=== PATIENT | female | born 1965 | race African-American/Black ===

== ENCOUNTER → 2020-07-05 02:58 | Outpatient (CLI) | payer OTHER, SELFPAY ==
[2020-07-05 18:08] LABS: SARS-CoV-2 RNA PCR Negative
== END ==
PROVIDERS: Visit Provider Podiatrist Foot & Ankle Surgery
DX: Z01.812 Encounter for preprocedural laboratory examination (principal); Z20.822 Contact with and (suspected) exposure to COVID-19
CPT/HCPCS: C9803; U0003; U0005

== ENCOUNTER 2020-07-05 09:30 | Outpatient (CLI) | payer OTHER, SELFPAY ==
[2020-07-05 10:12] LABS: Anion Gap 3 mmol/L (8-16); Blood Urea Nitrogen 18 mg/dL (7-17); Calcium 8.7 mg/dL (8.4-10.2); Carbon Dioxide 32 mmol/L (22-30); Chloride 106 mmol/L (98-107); Estimated Glomerular Filt Rate > 60; Glucose 101 mg/dL (65-105); Potassium 3.7 mmol/L (3.4-5.0); Sodium 141 mmol/L (137-145)
--- NOTE | 2020-07-05 11:30 | ECG_ITS ---
Measurements Intervals [place] Rate: 53 P: 47 W[place]: 147 QRS: 21 QRSD: 117 T: 25 QT: 457 QTc: 433 Interpretive Statements SINUS BRADYCARDIA BASELINE ARTIFACT- I, II, III, AVR, AVL, AVF, V1-V6 BORDERLINE ECG Electronically Signed On 07-05-2020 9:54:18 CDT by Jhonny Rodriguez D.O.
== END 2020-07-05 09:31 | disposition home or self-care (01) ==
LOC: ANHSURGERY 09:37
PROVIDERS: Anesthesiology; Visit Provider Podiatrist Foot & Ankle Surgery
DX: Z01.818 Encounter for other preprocedural examination (principal); Z51.81 Encounter for therapeutic drug level monitoring; Z79.899 Other long term (current) drug therapy; R00.1 Bradycardia, unspecified; I10 Essential (primary) hypertension
CPT/HCPCS: 36415; 80048; 93005

== ENCOUNTER 2020-07-08 01:17 | Day surgery (SDC) | payer OTHER, SELFPAY ==
[2020-07-04 13:02] VITALS: BMI 29.2
--- NOTE | ~2020-07-08 | XR_ITS ---
EXAMINATION: XR surgery orthopedic DATE: 07/08/2020 09:55 INDICATION: Right foot first metatarsophalangeal arthrodesis TECHNIQUE: Dorsal plantar and lateral fluoroscopic images of the right forefoot were obtained during procedure performed by Dr. Abdullahi. Radiologist was not present for the imaging or procedure. The am ount of fluoroscopy time used during this procedure was 0.1 minutes. COMPARISON: None. FINDINGS: Instrumented first metatarsophalangeal arthrodesis with dorsal plate and screw fixation. Alignment ap pears near-anatomic. No fracture. Remaining profile joint spaces appear relatively preserved. Soft ti ssue swelling and expected postoperative gas in the soft tissues surrounding the first metatarsophala ngeal joint. IMPRESSION: 1. Right first metatarsophalangeal arthrodesis, negative for postoperative purposes. Reviewed, dictated and finalized at location A. IMPRESSION: 1. Right first metatarsophalangeal arthrodesis, negative for postoperative purp oses.
[2020-07-08 06:20] VITALS: BP 163/85; PULSE 56; RESP 18; TEMP 36.9; O2SAT 100
[2020-07-08] MEDS: LACTATED RINGERS 1,000 ML 30 ML IV CONT (07:00)
--- NOTE | 2020-07-08 07:13 | WPDHPUPDATE1 ---
History and Physical Update Update Date/Time: 07/08/20 07:13 History and Physical has been reviewed, including an updated exam of the patient. There are NO changes in the patient's condition. Risks, benefits, and alternatives have been discussed and questions answered. Patient agrees to proceed with procedure.
--- NOTE | 2020-07-08 07:51 | P.PNAN_ITS ---
Anes - Initial Pre Proc Eval Procedure: Operation Date: 07/08/20 08:30 Proposed Procedures p Arthrodesis Of The First Metatarsal Phalangeal Joint Right Foot - Edgar Abdullahi JR, MD Date/Time: 07/08/20 07:51 Surgeon: Edgar Abdullahi JR, MD Pre Op Diagnosis: arthritic bunion right foot Patient Data Age: 55 Gender: F Height: 5 ft 3 in Weight: 73.8 kg Last Vital Signs Temp 36.9 C 07/08/20 06:20 Pulse 56 L 07/08/20 06:20 Resp 18 07/08/20 06:20 BP 163/85 H 07/08/20 06:20 Pulse Ox 100 07/08/20 06:20 Allergies Allergy/AdvReac Type Severity Reaction Status Date / Time No Known Allergies Allergy Verified 07/08/20 06:55 Home Medications Medication Instructions Recorded Confirmed Type aspirin 325 mg PO DAILY 07/04/20 07/08/20 History lisinopril-hydrochlorothiazide 1 tablet PO DAILY 07/04/20 07/08/20 History multivitamin [One A Day Vitamin] 1 tablet PO DAILY 07/04/20 07/08/20 History phentermine 37.5 mg PO DAILY 07/04/20 07/08/20 History Patient hx anesthesia problems: none Family hx anesthesia problems: none [facility], [facility] Past Medical History Medical History (Updated 07/08/20 @ 07:51 by Gato Carson MD) HTN (hypertension) Overweight Social History Social History Smoking status: Never smoker Alcohol intake: current Alcohol use details: 1 DRINK/MONTH Substance use: current Substance use type: marijuana Last use: 06/28/20 Living arrangements: alone Spiritual care concerns: No Anes - Eval Final PreProcedure Day of Procedure 07/08/20 07:51 Patient weight: overweight Heart: regular rate and rhythm Lungs: clear to auscultation Airway: Mallampati scale class II and other (chipped front tooth) Neurological: alert and oriented Last oral intake: >/= 8 hours ASA classification: II Emergent: no Anesthetic plan: proceed Anesthesia type and monitoring: general LMA and standard monitoring Informed Consent: The patient's anesthetic plan and its attendant risks and benefits were discussed with the patient/family/POA. Questions were solicited and answers provided to the satisfaction of the patient/family/POA.
[2020-07-08] MEDS: ceFAZolin 2 GM/D5W 50 ML 2 GM/50 ML BAG IVPB (08:33)
[2020-07-08 10:00] VITALS: BP 112/60; PULSE 55; RESP 16; O2SAT 100
--- NOTE | 2020-07-08 10:17 | PM.PROC ---
Procedure Note - Detailed Date of procedure: 07/08/20 Pre-op diagnosis: arthritic bunion right foot Post-op diagnosis: same Procedure performed: Arthrodesis of the first metatarsal phalangeal joint right foot Implants: [employer] Cross check plate with four (2.7)mm locking screws and one 3.5mm Lag Screw Anesthesia: GLMA and local Surgeon: Edgar Abdullahi JR, DPM Estimated blood loss (mL): 1 Drains: No Packing: No Pathology: none sent Complications: No immediate complications Condition: stable Disposition: same day Findings: PROCEDURE IN DETAIL: Under mild sedation, the patient was brought into the operating room, placed on the operating table in supine position. A pneumatic ankle tourniquet was placed about the patient's ipsilateral ankle. Following general LMA, a local anesthetic block was obtained about the right foot and ankle utilizing 20 cc of Exparel. The foot was then scrubbed, prepped, and draped in the usual aseptic manner. An Esmarch bandage was then used to exsanguinate the patient's foot and the pneumatic ankle tourniquet was then inflated. Surgery began in the following manner: Attention was directed to the dorsal aspect of the 1st metatarsophalangeal joint of the right foot where there was a large subcutaneous prominence noted along the dorsomedial aspect of the joint with loss of normal range of motion. The forefoot was also noted to be very wide due to the hallux valgus deformity. The incision was made starting along the central shaft of the 1st metatarsal and extending just proximal to the interphalangeal joint of the hallux. The incision was continued deep down through the subcutaneous tissues using sharp and blunt dissection. All bleeders were cauterized as necessary. At this point, the dissection was continued down to the level of the periosteum and capsular structures overlying the 1st metatarsophalangeal joint. A full length periosteum and capsular incision was made just medial to the extensor hallucis longus tendon. The periosteum and capsular structures were freed from the base of the proximal phalanx as well as the distal 1st metatarsal. At this point, the 1st metatarsophalangeal joint was identified. There was almost complete loss of articular cartilage to the head of the 1st metatarsal as well as the base of the proximal phalanx. There was significant broadening and hypertrophy of the 1st metatarsophalangeal joint. Utilizing a sagittal bone saw, the hypertrophied 1st metatarsal was resected dorsally, medially, and laterally. A power bur was used to make sure that there were no rough edges and also to further debride the hypertrophic 1st metatarsal. Next, a rongeur was used to resect all hypertrophic base of the proximal phalanx. At this point, the reamer system for the PartTec system was used to denude the degenerative cartilage from the head of the 1st metatarsal as well as the base of the proximal phalanx. The cartilage and subchondral bone were fully debrided utilizing the reamer system until healthy bleeding bone was noted. Next, a 2-0 drill bit was used to further fenestrate the head of the 1st metatarsal as well as the base of the proximal phalanx in order to allow fusion across the 1st metatarsophalangeal joint. Next, a 0.045 inch K-wire was driven from the medial aspect of the base of the proximal phalanx into the head of the 1st metatarsal in order to serve as temporary fixation. A large steel plate was used to make sure that the hallux was in a rectus position both in the sagittal plane as well as the frontal and transverse plane. Excellent position of the hallux was noted. Next, a CrossCHECK plate was placed atop the 1st metatarsophalangeal joint held in position with [place] wires. One of the tips of the [place] wires fractured within the first metatarsal bone. It was not protruding dorsally nor plantarly so I decided to leave it intact in order to prevent make a drill hole to try t
[2020-07-08 10:30] VITALS: BP 130/70; PULSE 43; RESP 14; O2SAT 100
[2020-07-08 11:00] VITALS: BP 115/60; PULSE 60; RESP 14
== END 2020-07-08 11:20 | disposition home or self-care (01) ==
PROVIDERS: Visit Provider Podiatrist Foot & Ankle Surgery
PROC: (CPT 28750; principal; 2020-07-08 08:30)
DX: M21.611 Bunion of right foot (principal); M19.071 Primary osteoarthritis, right ankle and foot; I10 Essential (primary) hypertension; Z79.82 Long term (current) use of aspirin; F12.90 Cannabis use, unspecified, uncomplicated
CPT/HCPCS: 28750; 36415; 80048; 93005; C1713; C9290; C9803; J0690; J2250; J2405; J2704; J3010; J7120; U0003; U0005